=== PATIENT | male | born 1940 | race Two or more races ===

== ENCOUNTER 2016-08-22 13:13 | Emergency (ER) | payer SELFPAY ==
[~2016-08-22] VITALS: Ht 167.6 cm; Wt 68.0 kg
[2016-08-22] MEDS ORDERED: NKM (13:22)
--- NOTE | 2016-08-22 13:43 | Emergency Room Report ---
History of Present Illness General Chief Complaint: Pain Source: Patient (YUSUF SZYMANSKI) Present Illness HPI The patient is a 76-year-old male with a history of left-sided paralysis presenting for left ankle pain which began today after walking. The patient states that he has been walking more than usual. The patient does not use a cane or any assistive device. The patient states pain is an 8/10 dull ache to the ankle and does not radiate. The patient denies any other symptoms including numbness or tingling. (YUSUF SZYMANSKI) Allergies: Coded Allergies: No Known Allergies (Unverified , 08/22/16) Patient History Reviewed Nursing Documentation: PMH: Agreed, PSxH: Agreed (YUSUF SZYMANSKI) Nursing Documentation-PM Past Medical History: No History, Except For Hx Neurological Problems: Yes - Head injury; Paralyzed LUE (YUSUF SZYMANSKI) Review of Systems All Other Systems: negative except mentioned in HPI (YUSUF SZYMANSKI) Physical Exam Vital Signs Date Time Temp Pulse Resp B/P Pulse Ox O2 Delivery O2 Flow Rate FiO2 08/22/16 13:24 97.2 92 16 174/77 98 Room Air Sp02 EP Interpretation: reviewed, normal General Appearance: no apparent distress, alert, GCS 15, non-toxic Head: normocephalic, atraumatic Eyes: bilateral eye PERRL, bilateral eye normal inspection ENT: hearing grossly normal, normal pharynx, no angioedema, normal voice Musculoskeletal: back normal, non-tender, no calf tenderness, decreased range of motion - L side due to paralysis Neurologic: alert, oriented x3, responsive, sensory intact, speech normal, motor weakness - L sided, other - No AROM of L side due to paralysis Psychiatric: judgement/insight normal, memory normal, mood/affect normal, no suicidal/homicidal ideation (YUSUF SZYMANSKI) Medical Decision Making PA Attestation Dr. Casanova is my supervising physician. Patient management was discussed with my supervising physician (YUSUF SZYMANSKI) Diagnostic Impression: Primary Impression: Left ankle strain ER Course The patient is a 76-year-old male with a history of left-sided paralysis presenting for left ankle pain Ddx considered include but not limited to sprain/strain, fracture, contusion PE: NAD L ankle: no edema. Non TTP. No AROM due to paralysis. No erythema. No obvious deformity. X-ray of the ankle is unremarkable for acute process. Patient is given Tylenol for pain. The patient will be discharged home and is given RICE instructions. (YUSUF SZYMANSKI) ER Course I agree with PA HPI and PE, as well as their assessment/plan. I also concur with PA review of imaging and rhythm strip without additional interpretation. (YEMI CASANOVA M.D.) Other X-Ray Diagnostic Results Other X-Ray Diagnostic Results : X-Ray Ordered: L ankle Date: Aug 22, 2016 EP Interpretation: Yes Findings: no fractures, no dislocation, no soft tissue swelling Number of Views: 3 PA Scribe Text I am acting as scribe for my supervising physician. My supervising physician's interpretation of the L ankle xrays are there are no fractures, dislocations or soft tissue swelling. (YUSUF SZYMANSKI) Last Vital Signs Date Time Temp Pulse Resp B/P Pulse Ox O2 Delivery O2 Flow Rate FiO2 08/22/16 13:24 97.2 92 16 174/77 98 Room Air Status: improved (YUSUF SZYMANSKI) Disposition: HOME, SELF-CARE Condition: Improved Scripts Acetaminophen* (TYLENOL EXTRA STRENGTH*) 500 Mg Tablet 500 MG ORAL Q8H Y for Prn Headache/Temp > 101, #30 TAB 0 Refills Prov: YUSUF SZYMANSKI 08/22/16 YUSUF SZYMANSKI Aug 22, 2016 13:43 YEMI CASANOVA M.D. Aug 25, 2016 19:35
[2016-08-22] MEDS ORDERED: TYLENOL EXTRA500 MG ORAL (14:44)
[2016-08-22 15:59] VITALS: BP 157/83
--- NOTE | 2016-08-22 16:39 | Diagnostic Imaging Report ---
Indication: PAIN Technique: 3 views of the left ankle Comparison: none Findings: No acute fractures. No dislocations. There is a sizable area of heterotopic ossification posterior to the distal tibia. This is either within the Achilles tendon or the adjacent subcutaneous fat Impression: No acute bony trauma Area of heterotopic ossification within the posterior subcutaneous fat or Achilles tendon. Correlate with any history of prior trauma
== END 2016-08-22 16:02 | disposition home or self-care (01) ==
LOC: EMR 13:40
DX: S96.912A Strain of unspecified muscle and tendon at ankle and foot level, left foot, initial encounter (principal); Y93.01 Activity, walking, marching and hiking; Y92.9 Unspecified place or not applicable; G81.94 Hemiplegia, unspecified affecting left nondominant side
CPT/HCPCS: 99283

== ENCOUNTER 2017-01-07 07:44 | Inpatient (IN) | payer MEDICARE ==
[~2017-01-07] VITALS: Ht 167.6 cm; Wt 64.9 kg
[~2017-01-07 07:44] MED LIST: NKM; TYLENOL EXTRA500 MG ORAL
[2017-01-07 08:05] VITALS: BP 187/64
--- NOTE | 2017-01-07 08:42 | Emergency Room Report ---
History of Present Illness General Chief Complaint: Multiple Trauma/Fall Source: Patient, EMS Present Illness HPI [id number] BIBEMS for standing level accidental fall on right side of head. No loc, nausea/vomiting. Not on ASA or other AC. Last tetanus was last year. Has left side weakness residual from distant fall, ?CVA "years ago." States "brain surgery in 1961". C/o dizziness. Ambulates without cane, "on one leg." Allergies: Coded Allergies: No Known Allergies (Unverified , 08/22/16) Patient History Past Medical History: see triage record, old chart reviewed Past Surgical History: none Pertinent Family History: none Social History: Denies: alcohol use, drug use, smoking Immunizations: UTD Reviewed Nursing Documentation: PMH: Agreed, PSxH: Agreed Nursing Documentation-PMH Past Medical History: No Stated History Hx Neurological Problems: Yes - Head injury; Paralyzed LUE Review of Systems All Other Systems: negative except mentioned in HPI Physical Exam Vital Signs Date Time Temp Pulse Resp B/P Pulse Ox O2 Delivery O2 Flow Rate FiO2 01/07/17 07:37 97.7 80 18 145/65 96 Room Air Sp02 EP Interpretation: reviewed, normal General Appearance: normal inspection, well appearing, no apparent distress, alert, GCS 15, non-toxic Head: normocephalic Eyes: bilateral eye EOMI, bilateral eye PERRL ENT: normal ENT inspection, hearing grossly normal, normal voice Neck: normal inspection, full range of motion, supple, no bony tend Respiratory: normal inspection, lungs clear, normal breath sounds, no respiratory distress, no retraction, no wheezing Cardiovascular #1: regular rate, rhythm, no edema Gastrointestinal: normal inspection, normal bowel sounds, non tender, soft, no guarding, no hernia Genitourinary: no CVA tenderness Musculoskeletal: normal inspection, back normal, normal range of motion, Angel' s Sign negative Neurologic: normal inspection, alert, oriented x3, responsive, chief relay tester III-XII nml as tested, speech normal, other - Left hand atrophied, contracted. Decreased strength to left side, upper and lower. No ataxia but very unsteady on feet Psychiatric: normal inspection, judgement/insight normal, mood/affect normal Skin: normal inspection, normal color, no rash Lymphatic: normal inspection Medical Decision Making Medicare Attestation I Kirill Casanova MD hereby attest that the medical record entry for date of service, 06/20/16 accurately reflects signatures/notations that I made in my capacity as MD when I treated/diagnosed the above listed Medicare beneficiary. I attest that this information is true, accurate and complete to the best of my knowledge. I understand that any falsification, omission, or concealment of material fact may subject me to administrative, civil, or criminal liability. This patient warrants hospital admission for extreme of age and has a condition that cannot be treated as outpatient. Diagnostic Impression: Primary Impression: Head contusion Qualified Codes: S00.93XA - Contusion of unspecified part of head, initial encounter Additional Impressions: Fall (on) (from) other stairs and steps, initial encounter Dizziness ER Course Fall, head trauma - No acute ICH on CT - Tetanus updated previous Dizziness - C/o dizziness since fall - Labs: No acute abnormality. H&H stable. No leuks. Trop 0. - ECG: ECG is NSR. No ischemia - CT shows s/p craniotomy, chronic encephalomalacia, ?NPH Tried to ambulate patient bedside, extremely busy ?acute NPH Warrants Neurology consult inpatient Endorsed to Dr Navarro for Panel Admit at 11am for tele bed. EKG Diagnostic Results Rate: normal Rhythm: NSR ST Segments: no acute changes ASA given to the pt in ED: No Rhythm Strip Diag. Results EP Interpretation: yes Rate: 73 Rhythm: NSR, no PVC's, no ectopy Chest X-Ray Diagnostic Results Chest X-Ray Ordered: Yes # of Views/Limited/Complete: 1 View EP Interpretation: Yes Interpretation: no consolidation, no effusion, no pneumothorax, no acute cardiopulmonary disease Indication: Other - dizziness Impression: No acute disease Interpreting ER Provider: Alejandro Last Vital Signs Date Time Temp Pulse Resp B/P Pulse Ox O2 Delivery O2 Flow Rate FiO2 01/07/17 07:37 97.7 80 18 145/65 96 Room Air Status: improved Disposition: ADMITTED INPATIENT Condition: Serious Referrals: NOT CHOSEN VERA/,REFERRING (PCP) KIRILL CASANOVA M.D. Jan 07, 2017 08:42
[2017-01-07 10:00] VITALS: BP 179/70
[2017-01-07 10:20] LABS: APPEARANCE,URINE CLEAR; KETONES,URINE NEGATIVE (NEGATIVE); LEUKOCYTE ESTERASE ,URINE NEGATIVE (NEGATIVE); NITRITE,URINE NEGATIVE (NEGATIVE); PH,URINE 7 (4.5-8.0); PROTEIN,URINE NEGATIVE (NEGATIVE); UROBILINOGEN,URINE NORMAL MG/DL (0.0-1.0)
[2017-01-07 10:23] LABS: BASOPHILS % (AUTO) 1.6 % (0.0-2.0); LYMPHOCYTES % (AUTO) 18.7 % (20.0-45.0); MEAN CORPUSCULAR HEMOGLOBIN 28.2 PG (27.0-31.0); MEAN CORPUSCULAR HGB CONC 32.6 G/DL (32.0-36.0); MEAN CORPUSCULAR VOLUME 86 FL (80-99); MEAN PLATELET VOLUME 5.8 FL (6.5-10.1); MONOCYTES % (AUTO) 11.4 % (1.0-10.0); NEUTROPHILS % (AUTO) 65.4 % (45.0-75.0); PLATELET COUNT 257 K/UL (150-450); RED BLOOD COUNT 4.95 M/UL (4.70-6.10); RED CELL DISTRIBUTION WIDTH 11.1 % (11.6-14.8); WHITE BLOOD COUNT 6.5 K/UL (4.8-10.8)
[2017-01-07 10:35] LABS: ALANINE AMINOTRANSFERASE 10 U/L (3-41); ANION GAP 11 (5-15); ASPARTATE AMINO TRANSFERASE 14 U/L (5-40); CALCIUM 9.3 mg/dL (8.6-10.2); CARBON DIOXIDE 30 mEQ/L (20-30); CHLORIDE 100 mEQ/L (98-107); CREATININE 0.8 mg/dL (0.7-1.2); HEMOLYSIS 5; POTASSIUM 4.3 mEQ/L (3.4-4.9); SODIUM 141 mEQ/L (135-145); TOTAL PROTEIN 6.3 g/dL (6.6-8.7); TROPONIN I < 0.30 ng/mL (<=0.30)
[2017-01-07 10:47] LABS: CKMB 2.9 ng/mL (< 6.7)
[2017-01-07 10:58] LABS: BACTERIA,URINE OCCASIONAL /HPF; SQUAMOUS EPITHELIAL CELL,UR OCCASIONAL /LPF (NONE/OCC); WBC,URINE 0-2 /HPF (0 - 0)
[2017-01-07 11:04] VITALS: BP 179/70
[2017-01-07 12:00] VITALS: BP 160/93
--- NOTE | 2017-01-07 12:09 | Diagnostic Imaging Report ---
Indications: Fall, right temporal region head trauma, pain Technique: Continuous helical CT imaging of the brain was performed with automatic exposure control on a Siemens sensation [address] scanner. Axial and coronal images were reconstructed at 5 mm slice thickness and interval. CTDI volume(s): 70 mGy Total DLP: 1463 mGy-cm Findings: Comparison: None. Large area of fluid-filled parenchymal loss involves much of the right and adjacent portion of the right below as well as underlying insula and basal ganglia regions. Blunting surgical clips, craniotomy defects. Ventricles, cisterns and sulci are diffusely prominent. No evidence of mass or hemorrhage, other attenuation abnormality, mass effect, midline shift, or increased intracranial pressure. Bone window images are otherwise unremarkable. Mild mucoperiosteal thickening bilateral ethmoid sinuses. Remainder visualized paranasal sinuses and mastoid air cells are clear. IMPRESSION: No evidence of acute injury or other acute intra-pathology Large area of chronic encephalomalacia right frontal and temporal lobes, insula, basal ganglia underlying old craniotomy defect Atrophy with ventriculomegaly. Query element of normal pressure hydrocephalus.. Sinus disease The CT scanner at [facility] is accredited by the [place] and the scans are performed using protocols designed to limit radiation exposure to as low as reasonably achievable to attain images of sufficient resolution adequate for diagnostic evaluation.
--- NOTE | 2017-01-07 12:27 | Diagnostic Imaging Report ---
Indication: Shortness breath Technique: Single portable AP view of the chest. Findings: Comparison: None. Patient rotated LPO, limiting evaluation. Thoracic vertebral osteophytes. Aortic arch calcified. The remaining bones and extra pulmonary soft tissues, remainder of the cardiomediastinal silhouette, pulmonary vasculature and parenchyma, and pleural surfaces are unremarkable. IMPRESSION: No evidence of acute cardiopulmonary disease, limited as described. Chronic changes as described..
[2017-01-07 16:00] VITALS: BP 132/58
[2017-01-07 20:00] VITALS: BP 126/59
[2017-01-07] MEDS: Heparin 5000 units/ml inj SUBQ SCH (20:34)
[2017-01-07] MEDS ORDERED: Zolpidem 5mg tab ORAL PRN (21:00)
[2017-01-08 08:00] VITALS: BP 154/74
[2017-01-08] MEDS: Heparin 5000 units/ml inj SUBQ SCH ×2 (08:47→21:21)
[2017-01-08 12:00] VITALS: BP 147/79
--- NOTE | 2017-01-08 15:12 | History & Physical ---
History and Physical History & Physicial HPI 76 brought in after a fall. Patient admits to prior brain surgery back in 1962. Patient notes he is homeless and will need rehab. Patient underwent CT head with some concern of NPH. Patient does complain of dizziness. no vision change Ambulates without cane but has difficulty doing so. Events of the fall were acute but he has had difficulty with balance for some time. Patient denies any head trauma at this time. Allergies: No Known Allergies (Unverified , 08/22/16) Past Medical History: LUE paralysis, head injury Past Surgical History: prior brain surgery Pertinent Family History: none Social History: no alcohol use, drug use, smoking; reports being homeless Reviewed of systems: all 10 points reviewed and are reported as negative Physical exam WDWN NAD clear breath sounds bilaterally without rhonchi or wheeze [id number] without MRG NABS nontender no HSM no CCE alert and oriented but history is poor left hand/arm with atrophy and contractures Labs Test 01/07/17 10:00 White Blood Count 6.5 K/UL (4.8-10.8) Red Blood Count 4.95 M/UL (4.70-6.10) Hemoglobin 14.0 G/DL (14.2-18.0) Hematocrit 42.8 % (42.0-52.0) Mean Corpuscular Volume 86 FL (80-99) Mean Corpuscular Hemoglobin 28.2 PG (27.0-31.0) Mean Corpuscular Hemoglobin Concent 32.6 G/DL (32.0-36.0) Red Cell Distribution Width 11.1 % (11.6-14.8) Platelet Count 257 K/UL (150-450) Mean Platelet Volume 5.8 FL (6.5-10.1) Neutrophils (%) (Auto) 65.4 % (45.0-75.0) Lymphocytes (%) (Auto) 18.7 % (20.0-45.0) Monocytes (%) (Auto) 11.4 % (1.0-10.0) Eosinophils (%) (Auto) 3.0 % (0.0-3.0) Basophils (%) (Auto) 1.6 % (0.0-2.0) Urine Color Pale yellow Urine Appearance Clear Urine pH 7 (4.5-8.0) Urine Specific [place] 1.010 (1.005-1.035) Urine Protein Negative (NEGATIVE) Urine Glucose (UA) Negative (NEGATIVE) Urine Ketones Negative (NEGATIVE) Urine Occult Blood 2+ (NEGATIVE) Urine Nitrite Negative (NEGATIVE) Urine Bilirubin Negative (NEGATIVE) Urine Urobilinogen Normal MG/DL (0.0-1.0) Urine Leukocyte Esterase Negative (NEGATIVE) Urine RBC 2-4 /HPF (0 - 0) Urine WBC 0-2 /HPF (0 - 0) Urine Squamous Epithelial Cells Occasional /LPF Urine Bacteria Occasional /HPF (NONE) Sodium Level 141 mEQ/L (135-145) Potassium Level 4.3 mEQ/L (3.4-4.9) Chloride Level 100 mEQ/L (98-107) Carbon Dioxide Level 30 mEQ/L (20-30) Anion Gap 11 (5-15) Blood Urea Nitrogen 14 mg/dL (7-23) Creatinine 0.8 mg/dL (0.7-1.2) Estimat Glomerular Filtration Rate mL/min (>60) Glucose Level 103 mg/dL (74-106) Calcium Level 9.3 mg/dL (8.6-10.2) Total Bilirubin 0.3 mg/dL (0.0-1.2) Aspartate Amino Transf (AST/SGOT) 14 U/L (5-40) Alanine Aminotransferase (ALT/SGPT) 10 U/L (3-41) Alkaline Phosphatase 71 U/L (40-129) Total Creatine Kinase 71 U/L (38-174) Creatine Kinase MB 2.9 ng/mL (< 6.7) Creatine Kinase MB Relative Index 4.0 Troponin I < 0.30 ng/mL (<=0.30) Total Protein 6.3 g/dL (6.6-8.7) Albumin 4.2 g/dL (3.5-5.2) Globulin 2.1 g/dL Albumin/Globulin Ratio 2.0 (1.0-2.7) IMPRESSION possible NPH left upper extremity atrophy acute encephalopathy prior brain surgery per report PLAN hydrate follow up MRI neuro evaluation PT and OT evaluation likely will need placement at risk of falls impression, plan, and exam edited and reviewed in detail care discussed with VINCENT MAY Jan 08, 2017 15:12
[2017-01-08 15:47] VITALS: BP 138/71
[2017-01-08 20:00] VITALS: BP 159/73
[2017-01-09] VITALS: BP 142/69
[2017-01-09 04:00] VITALS: BP 149/60
[2017-01-09 08:00] VITALS: BP 138/68
[2017-01-09] MEDS: Heparin 5000 units/ml inj SUBQ SCH ×2 (08:01→21:49)
--- NOTE | 2017-01-09 08:39 | General Progress Note ---
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 acute encephalopathy prior brain surgery per report PLAN hydrate as is follow up MRI neuro evaluation PT and OT evaluation likely will need placement for rehab at risk of falls impression, plan, and exam edited and reviewed in detail care discussed with RN Subjective Allergies: Coded Allergies: No Known Allergies (Unverified , 08/22/16) Subjective still confused NAD overall comfortable Objective Last 24 Hour Vital Signs Date Time Temp Pulse Resp B/P Pulse Ox O2 Delivery O2 Flow Rate FiO2 01/09/17 04:00 69 01/09/17 04:00 97.9 66 19 149/60 99 Room Air 01/09/17 00:00 98.0 73 20 142/69 95 Room Air 01/09/17 00:00 72 01/08/17 20:00 98.4 73 20 159/73 97 Room Air 01/08/17 20:00 74 01/08/17 16:00 73 01/08/17 15:47 98.1 74 18 138/71 98 Room Air 01/08/17 12:00 97.9 75 19 147/79 97 Room Air 01/08/17 12:00 72 Intake and Output 01/08/17 01/09/17 19:00 07:00 Intake Total 1815 ml 1340 ml Output Total 1550 ml 900 ml Balance 265 ml 440 ml Intake Oral 800 ml 200 ml IV Total 1015 ml 1140 ml Output Urine Total 1550 ml 900 ml # Bowel Movements 2 Labs Test 01/07/17 10:00 White Blood Count 6.5 K/UL (4.8-10.8) Red Blood Count 4.95 M/UL (4.70-6.10) Hemoglobin 14.0 G/DL (14.2-18.0) Hematocrit 42.8 % (42.0-52.0) Mean Corpuscular Volume 86 FL (80-99) Mean Corpuscular Hemoglobin 28.2 PG (27.0-31.0) Mean Corpuscular Hemoglobin Concent 32.6 G/DL (32.0-36.0) Red Cell Distribution Width 11.1 % (11.6-14.8) Platelet Count 257 K/UL (150-450) Mean Platelet Volume 5.8 FL (6.5-10.1) Neutrophils (%) (Auto) 65.4 % (45.0-75.0) Lymphocytes (%) (Auto) 18.7 % (20.0-45.0) Monocytes (%) (Auto) 11.4 % (1.0-10.0) Eosinophils (%) (Auto) 3.0 % (0.0-3.0) Basophils (%) (Auto) 1.6 % (0.0-2.0) Urine Color Pale yellow Urine Appearance Clear Urine pH 7 (4.5-8.0) Urine Specific [place] 1.010 (1.005-1.035) Urine Protein Negative (NEGATIVE) Urine Glucose (UA) Negative (NEGATIVE) Urine Ketones Negative (NEGATIVE) Urine Occult Blood 2+ (NEGATIVE) Urine Nitrite Negative (NEGATIVE) Urine Bilirubin Negative (NEGATIVE) Urine Urobilinogen Normal MG/DL (0.0-1.0) Urine Leukocyte Esterase Negative (NEGATIVE) Urine RBC 2-4 /HPF (0 - 0) Urine WBC 0-2 /HPF (0 - 0) Urine Squamous Epithelial Cells Occasional /LPF Urine Bacteria Occasional /HPF (NONE) Sodium Level 141 mEQ/L (135-145) Potassium Level 4.3 mEQ/L (3.4-4.9) Chloride Level 100 mEQ/L (98-107) Carbon Dioxide Level 30 mEQ/L (20-30) Anion Gap 11 (5-15) Blood Urea Nitrogen 14 mg/dL (7-23) Creatinine 0.8 mg/dL (0.7-1.2) Estimat Glomerular Filtration Rate mL/min (>60) Glucose Level 103 mg/dL (74-106) Calcium Level 9.3 mg/dL (8.6-10.2) Total Bilirubin 0.3 mg/dL (0.0-1.2) Aspartate Amino Transf (AST/SGOT) 14 U/L (5-40) Alanine Aminotransferase (ALT/SGPT) 10 U/L (3-41) Alkaline Phosphatase 71 U/L (40-129) Total Creatine Kinase 71 U/L (38-174) Creatine Kinase MB 2.9 ng/mL (< 6.7) Creatine Kinase MB Relative Index 4.0 Troponin I < 0.30 ng/mL (<=0.30) Total Protein 6.3 g/dL (6.6-8.7) Albumin 4.2 g/dL (3.5-5.2) Globulin 2.1 g/dL Albumin/Globulin Ratio 2.0 (1.0-2.7) Height (Feet): 5 Height (Inches): 6.00 Weight (Pounds): 143 Objective WDWN NAD clear breath sounds bilaterally without rhonchi or wheeze [id number] without MRG NABS nontender no HSM no CCE alert and oriented but history is poor left hand/arm with atrophy and contractures reviewed and edited VINCENT PANTOJA Jan 09, 2017 08:39
--- NOTE | 2017-01-09 11:17 | Neurology Progress Note ---
Objective Physical Exam Last Vital Signs Date Time Temp Pulse Resp B/P Pulse Ox O2 Delivery O2 Flow Rate FiO2 01/09/17 04:00 69 01/09/17 04:00 97.9 19 149/60 99 Room Air Impression/Recommendations Recommendations #[id number] EEG PT/OT placement NOE TRIVEDI Jan 09, 2017 11:17
[2017-01-09 12:00] VITALS: BP 142/65
[2017-01-09 13:52] LABS: PSA TOTAL 2.5 ng/mL (< 4.5); THYROID STIMULATING HORMONE 1.36 uIU/mL (0.300-4.500)
[2017-01-09 14:02] LABS: CHOLESTEROL/HDL RATIO 2.7 (3.3-4.4)
[2017-01-09 16:00] VITALS: BP 148/69
--- NOTE | 2017-01-09 19:45 | Consultation ---
DATE OF CONSULTATION: 01/09/2017 NEUROLOGICAL CONSULTATION REQUESTING PHYSICIAN: Charlie Navarro M.D. HISTORY OF PRESENT ILLNESS: This is a 76-year-old homeless man, who is seen in neurological consultation to evaluate the new changes in mental status, memory loss and status post trip and fall accident. The patient informed me that he was walking when the left leg, which is shorter, tripped, he fell forward hitting right side of the head exactly the place where he had a previous head surgery. He had no loss of consciousness. He was able to get up and go to a nearby restaurant where he asked them to call paramedics. He was brought to emergency room with vital signs stable, blood pressure was 145/65, heart rate of 80, and temperature 97.7 degrees. He had a right parietal bruise. He was complaining of dizziness, weakness and retrograde amnesia on the event. Following admission, stat CT of the brain was obtained. No evidence of acute intracranial abnormality and no evidence of subdural hematoma. There is a large area of chronic encephalomalacia right frontal temporal lobe as well as inferior basal ganglia, which were underlying for craniotomy defect. There was atrophy with ventriculomegaly, some elements of normal pressure hydrocephalus, and sinus disease. Lab work study revealed normal CBC. Chemistry panel was unremarkable. Normal troponin. He remains stable. PAST MEDICAL HISTORY: The patient has a history of traumatic subdural hematoma in 1962, required a craniotomy and cranioplasty. He remained with left hemiparesis since then. He had cough. The patient is unaware of any other medical problems. He denies having seizures. History of head trauma with surgery. Denies high blood pressure, diabetes and no chest pain or palpitations. SOCIAL HISTORY: The patient last month, he is on a street. He was not elaborating much about his past, but indicated those members of the family who was available they are busy with their live, growing children. Denies alcohol or drug abuse. PHYSICAL EXAMINATION: GENERAL: Well-developed and well-nourished man, not in acute distress and sitting at the bedside. HEENT: Head, normocephalic. There is a bruise in the area of previous craniotomy. There was slight tenderness in this area. No otorrhea. No rhinorrhea. NECK: Supple. No meningeal signs. MUSCULOSKELETAL: Remarkable for left-sided smallness. Peripheral pulses 1+, symmetric. MENTAL STATUS: Alert and oriented x3. Speech is fluent. Language is intact. He is somewhat forgetful and stated that he cannot recall the details of his fall. Currently, still with mild lightheadedness and forgetfulness. CRANIAL NERVE II: Pupils, both responding to light and accommodation. Extraocular movements intact. No nystagmus. Visual gentile are full to confrontation. Fundi poorly visualized. CRANIAL NERVE V: Normal corneal responses. CRANIAL NERVE VII: Minor facial asymmetry. CRANIAL NERVE VIII: Normal hearing. CRANIAL NERVE IX THROUGH XII: Tongue is in midline. Symmetric palate elevation. MOTOR EXAMINATION: Spastic left upper and left lower extremity with weakness 1/5 left upper extremity and 3/5 left lower extremity. Muscle wasting and smallness of left upper and left lower extremity. Deep tendon reflexes 4+ on the left and 1+ on the right. Positive Babinski in the left. SENSORY EXAM: Decreased response to pin stimulation to left hand and leg. Gait hemiparetic, using cane. IMPRESSION: 1. Status post trip and fall accident with a blunt head trauma, scalp laceration. 2. Old right-sided subdural hematoma with craniotomy, results in a good residual, spastic left hemiparesis. 3. Hydrocephalus with ex-vacuo. 4. Homelessness. RECOMMENDATION: Get a PT/OT. Mobility protocol. Observe for any paroxysmal events. Get an EEG to evaluate for underlying seizure activities. health services rn for appropriate placement. Lab work to include B12, folate, thyroid function, CORINE, sedimentation rate, lipid panel, and PSA. Thank you for allowing me to see this interesting patient in neurological consultation. Alber Aquino M.D. DR: YOAV JOB#: [id number] CC:
--- NOTE | 2017-01-09 20:09 | Cardiology Report ---
APPROVED REPORT EKG Measurement Heart [id number] AR [id number] Normal sinus rhythm Left axis deviation Abnormal ECG
[2017-01-09 20:26] VITALS: BP 155/80
[2017-01-10] VITALS: BP 129/54
[2017-01-10 04:00] VITALS: BP 131/68
--- NOTE | 2017-01-10 08:05 | General Progress Note ---
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 acute encephalopathy prior brain surgery per report PLAN hydrate as is follow up MRI and EEG neuro evaluation appreciated PT and OT evaluation SNF placement at risk of falls impression, plan, and exam edited and reviewed in detail care discussed with RN Subjective Allergies: Coded Allergies: No Known Allergies (Unverified , 08/22/16) Subjective still with some confusion NAD overall comfortable neuro appreciated Objective Last 24 Hour Vital Signs Date Time Temp Pulse Resp B/P Pulse Ox O2 Delivery O2 Flow Rate FiO2 01/10/17 04:00 98.5 71 18 131/68 65 Room Air 01/10/17 04:00 68 01/10/17 00:00 69 01/10/17 00:00 98.6 67 20 129/54 96 Room Air 01/09/17 20:26 70 21 155/80 93 Room Air 01/09/17 20:00 68 01/09/17 16:00 76 01/09/17 16:00 98.2 78 19 148/69 98 Room Air 01/09/17 12:00 67 01/09/17 12:00 98.5 78 18 142/65 98 Room Air Intake and Output 01/09/17 01/10/17 19:00 07:00 Intake Total 1100 ml 1048.0 ml Output Total 900 ml 1200 ml Balance 200 ml -152.0 ml Intake Oral 200 ml IV Total 900 ml 1048.0 ml Output Urine Total 900 ml 1200 ml Laboratory Tests 01/09/17 12:15: Triglycerides Level 70, Cholesterol Level 106, LDL Cholesterol 53L, HDL Cholesterol 39, Cholesterol/HDL Ratio 2.7L, Prostate Specific Antigen 2.5, Vitamin B12 Level 181L, Thyroid Stimulating Hormone (TSH) 1.360 Height (Feet): 5 Height (Inches): 6.00 Weight (Pounds): 143 Objective WDWN NAD clear breath sounds bilaterally without rhonchi or wheeze [id number] without MRG NABS nontender no HSM no CCE alert and oriented but history is poor left hand/arm with atrophy and contractures reviewed and edited VINCENT PANTOJA Jan 10, 2017 08:05
[2017-01-10 08:30] VITALS: BP 127/66
[2017-01-10] MEDS: Heparin 5000 units/ml inj SUBQ SCH ×2 (10:15→21:05)
[2017-01-10 12:02] VITALS: BP 131/58
--- NOTE | 2017-01-10 12:28 | Neurology Progress Note ---
Interim History Interim History ROS Limited/Unobtainable: No Complaints: worry about brain bleed Events: stable Objective Physical Exam Last Vital Signs Date Time Temp Pulse Resp B/P Pulse Ox O2 Delivery O2 Flow Rate FiO2 01/10/17 12:02 98.0 63 18 131/58 95 Room Air General: other - R FT craniotomy Head: normocophalic, atraumatic Neck: no rigidity Neurologic Exam Mental Status: awake, alert, oriented x4, normal cognition, normal recent memory Speech: normal speech, no dysarthia Language: normal language, no aphasia Cranial Nerve II: fundus normal, visual gentile, no papilledema Cranial Nerves III, IV, : PERRLA, EOMI, pupils Cranial Nerve V: normal facial sensations, temporales function normal, masseters function normal, pterygoids function normal Cranial Nerve VII: other - L face droop Cranial Nerve VIII: no nystagmus Cranial Nerve IX: normal palate elevation, gag response Cranial Nerve X: no voice hoarseness Cranial Nerve XI: SCM symmetric, trapezii function normal Cranial Nerve XII: tongue midline, no tongue atrophy/fasciculations Motor System: other - spastic L side Sensory: normal pinprick, normal position sense Coordination: other - +romberg Deep Tendon Reflexes: 1+ bicep (R), 1+ brachioradialis (R), 1+ knee (R), 1+ tricep (R), 3+ ankle (L), 3+ bicep (L), 3+ brachioradialis (L), 3+ knee (L), 3+ tricep (L) Reflexes: mute plantar (L), mute plantar (R) Gait: other - hemiparetic Impression/Recommendations Problems: (1) s/p blunt head trauma (2) old R craniotomy/cranioplasy (3) 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
--- NOTE | 2017-01-10 12:31 | Electroencephalogram ---
DATE OF PROCEDURE: 01/09/2017 ELECTROENCEPHALOGRAPHY REPORT REFERRING PHYSICIAN: Charlie Navarro M.D. HISTORY: This is a 76-year-old man, who has a large encephalomalacia affecting right frontal lobe and basal ganglia, status post a craniotomy and status post cardiotomy for subdural hematoma. The patient admitted with changes in mental status. EEG was done using 18 electrodes placed scalp to scalp, scalp to ear montages according to 10/20 International System. During the recording, the patient was awake or drowsy, but fairly cooperative normal mentality. Most wakeful portions of recording, background activity consists of well regulated, 7 to 8 cycles per second alpha activities, with good response to physiological stimulation. Photic stimulation from 3 to 32 hertz was done, result no significant changes with intermittent appearance of slowness in the theta range, 6 to 7 hertz was noted in the right frontal central region. No significant amplitude asymmetry noted as well. IMPRESSION: Abnormal EEG with mild diffuse slowing, with localized in the right frontal central region. COMMENT: 1. Above abnormality indicates a global cerebral dysfunction with probably structural lesion in the right frontal central area. 2. Absence of paroxysmal epileptiform activities does not rule out seizure disorder. Alber Aquino M.D. DR: BI JOB#: [id number] CC:
[2017-01-10 15:54] VITALS: BP 135/66
--- NOTE | 2017-01-10 16:06 | Geriatric Progress Note ---
Assessment/Plan Assessment/Plan lexapro 10mg qam no 5150 no psych hospt dc sitter Discussed with: patient Subjective Constitutional: Reports: malaise, weakness Psychiatric: Reports: see HPI Sleep: Reports: no symptoms Geriatric Geriatric Last 24 Hour Vital Signs Date Time Temp Pulse Resp B/P Pulse Ox O2 Delivery O2 Flow Rate FiO2 01/10/17 15:54 98.1 65 20 135/66 97 Room Air 01/10/17 12:02 98.0 63 18 131/58 95 Room Air 01/10/17 12:00 72 01/10/17 08:30 98.2 75 18 127/66 95 Room Air 01/10/17 08:00 71 01/10/17 04:00 98.5 71 18 131/68 65 Room Air 01/10/17 04:00 68 01/10/17 00:00 69 01/10/17 00:00 98.6 67 20 129/54 96 Room Air 01/09/17 20:26 70 21 155/80 93 Room Air 01/09/17 20:00 68 Intake and Output 01/09/17 01/10/17 19:00 07:00 Intake Total 1100 ml 1048.0 ml Output Total 900 ml 1200 ml Balance 200 ml -152.0 ml Intake Oral 200 ml IV Total 900 ml 1048.0 ml Output Urine Total 900 ml 1200 ml Current Medications Medications (Trade) Dose Ordered Sig/Natalio Route PRN Reason Start Time Stop Time Status Last Admin Dose Admin Acetaminophen (Tylenol) 650 mg Q4H PRN ORAL Mild Pain/Temp > 100.5 01/07/17 13:00 02/06/17 12:59 Al Hydroxide/Mg Hydroxide (Mylanta) 30 ml EVERY 4 HOURS PRN ORAL DYSPEPSIA 01/07/17 13:00 02/06/17 12:59 Clonidine HCl (Catapres) 0.1 mg Q4H PRN ORAL SBP>150 01/07/17 13:00 02/06/17 12:59 01/07/17 14:50 Escitalopram Oxalate (Lexapro) 10 mg DAILY ORAL 01/11/17 09:00 02/10/17 08:59 UNV Heparin Sodium (Porcine) (Heparin 5000 units/ml) 5,000 units EVERY 12 HOURS SUBQ 01/07/17 21:00 02/06/17 20:59 01/10/17 10:15 Pantoprazole (Protonix) 40 mg DAILY ORAL 01/08/17 09:00 02/07/17 08:59 01/10/17 10:13 Sodium Chloride (Sodium Chloride 1000ml bag) 1,000 ml @ 100 mls/hr Q10H IV 01/07/17 13:00 02/06/17 12:59 01/10/17 15:00 Zolpidem Tartrate (Ambien) 5 mg HSPRN PRN ORAL Insomnia 01/07/17 21:00 02/06/17 20:59 Height (Feet): 5 Height (Inches): 6.00 Weight (Pounds): 143 General Appearance: well appearing, alert Psychiatric: no suicidal/homicidal ideation, depressed affect, anxious Psychiatric Behavior: cooperative Language/Speech: intact, fluent Orientation: person, place, time, situation Affect: appropriate, restricted Insight: good Memory: immediate, recent, remote Kathie Wallace M.D. Jan 10, 2017 16:06
[2017-01-10 20:00] VITALS: BP 145/70
--- NOTE | 2017-01-10 21:46 | Consultation ---
DATE OF CONSULTATION: HISTORY OF PRESENT ILLNESS: The patient is a 76-year-old male with a history of multiple medical problems, depression, left ankle strain, head contusion, fall, and dizziness, who has been admitted to the hospital for medical stabilization. The patient voiced suicidal ideation two days ago to the staff. The patient has been placed on one-to-one for safety. During the evaluation, the patient is presenting with depressed mood, anhedonia, decreased energy, hopelessness, and helplessness. The patient does not endorse any decreased appetite, decreased sleep as well. He currently does not endorse any suicidal ideation, however, he stated at some point that he is suicidal. He has an appointment with a physician in [place] that he has missed and he does not have any regular psychiatrist. PAST MEDICAL HISTORY: As I mentioned above, he has a history of fall and head contusion. ALLERGIES: No known drug allergies. SUBSTANCE ABUSE HISTORY: No known history of illicit drug use or alcohol. The patient has no children. MENTAL STATUS EXAMINATION: The patient is alert and oriented x3. Mood is depressed. Affect is constricted. Congruent mood. Thought process is concrete. Thought content, there is no suicidal or homicidal ideation. ASSESSMENT: AXIS I Major depressive disorder, recurrent, moderate. AXIS II Deferred. AXIS III Fall. AXIS IV Low. AXIS V Global assessment of functioning is 20. PLAN: 1. Lexapro 10 mg p.o. every morning. 2. We will continue to follow and readjust the medication. 3. The patient is not an imminent danger to self or others. He does not meet the criteria for Hope, he is open to new medications. I was able to explain to him that the medication would take 2 to 6 weeks to be effective. He was also educated that he needs to take medication every day. We will continue to follow the patient and monitor his symptoms. Kathie Wallace M.D. DR: Salvatore JOB#: [id number] CC:
[2017-01-11] VITALS: BP 178/75
[2017-01-11 04:00] VITALS: BP 148/64
[2017-01-11 07:46] VITALS: BP 153/76
--- NOTE | 2017-01-11 09:17 | General Progress Note ---
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 acute encephalopathy prior brain surgery per report PLAN negative EEG MRI refused neuro evaluation appreciated PT and OT evaluation dc today as per case management impression, plan, and exam edited and reviewed in detail care discussed with RN Subjective Allergies: Coded Allergies: No Known Allergies (Unverified , 08/22/16) Subjective no distress cleared by neuro Objective Last 24 Hour Vital Signs Date Time Temp Pulse Resp B/P Pulse Ox O2 Delivery O2 Flow Rate FiO2 01/11/17 07:46 98.1 62 18 153/76 96 Room Air 01/11/17 04:00 65 01/11/17 04:00 98.5 80 18 148/64 99 Room Air 01/11/17 00:00 74 01/11/17 00:00 98.4 86 20 178/75 Room Air 01/10/17 20:00 98.4 71 18 145/70 97 Room Air 01/10/17 20:00 70 01/10/17 16:00 66 01/10/17 15:54 98.1 65 20 135/66 97 Room Air 01/10/17 12:02 98.0 63 18 131/58 95 Room Air 01/10/17 12:00 72 Intake and Output 01/10/17 01/11/17 19:00 07:00 Intake Total 1060 ml 1200 ml Output Total 550 ml 900 ml Balance 510 ml 300 ml Intake Oral 360 ml 100 ml IV Total 700 ml 1100 ml Output Urine Total 550 ml 900 ml # Voids 1 3 # Bowel Movements 1 Height (Feet): 5 Height (Inches): 6.00 Weight (Pounds): 143 Objective WDWN NAD clear breath sounds bilaterally without rhonchi or wheeze [id number] without MRG NABS nontender no HSM no CCE alert and oriented and near baseline left hand/arm with atrophy and contractures reviewed and edited VINCENT PANTOJA Jan 11, 2017 09:17
[2017-01-11] MEDS: Heparin 5000 units/ml inj SUBQ SCH ×2 (09:26→21:00)
[2017-01-11 11:42] VITALS: BP 139/72
[2017-01-11 15:41] VITALS: BP 145/76
--- NOTE | 2017-01-11 17:15 | Progress Note ---
SUBJECTIVE: The patient still complaining of depressed mood, anhedonia, hopelessness, helplessness, decreased energy. No suicidal or homicidal ideations. Sleep and appetite is adequate. No adverse reaction to the Lexapro. MENTAL STATUS EXAMINATION: The patient is alert and oriented x4, cooperative, pleasant. There is psychomotor retardation. Mood is depressed. Affect is constricted. Congruent with mood. Thought process is concrete. Thought content, no suicidal, homicidal ideations. ASSESSMENT: Major depressive disorder. PLAN: 1. The patient will be continued on Lexapro 10 mg in the morning. 2. Provide the patient with supportive therapy and reality orientation . Kathie Wallace M.D. DR: Slim JOB#: [id number] CC:
[2017-01-11 20:00] VITALS: BP 155/90
[2017-01-12] VITALS: BP 165/78
[2017-01-12 04:00] VITALS: BP 148/70
[2017-01-12 08:01] VITALS: BP 153/70
[2017-01-12] MEDS: Heparin 5000 units/ml inj SUBQ SCH ×3 (08:32→09:00)
[2017-01-12] MEDS ORDERED: ACETAMINOPHEN325 M1 ORAL (11:50)
[2017-01-12] MEDS ORDERED: LEXAPRO10 MG ORAL (11:51)
[2017-01-12] MEDS ORDERED: CATAPRES0.1 MG ORAL (11:51)
[2017-01-12] MEDS ORDERED: HEPARIN SO5000 UNIT2 SUBQ (11:52)
[2017-01-12 11:55] VITALS: BP 170/77
[2017-01-12] MEDS ORDERED: MYLANTA30 M1 ORAL (11:55)
[2017-01-12] MEDS ORDERED: PANTOPRAZOLE SO40 MG ORAL (11:57)
[2017-01-12] MEDS ORDERED: AMBIEN5 MG ORAL (11:57)
[2017-01-12 12:10] VITALS: BP 170/77
--- NOTE | 2017-01-12 13:13 | General Progress Note ---
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 acute encephalopathy prior brain surgery per report PLAN negative EEG MRI refused neuro evaluation appreciated PT and OT evaluation dc today for SNF care impression, plan, and exam edited and reviewed in detail care discussed with RN Subjective Allergies: Coded Allergies: No Known Allergies (Unverified , 08/22/16) Subjective no distress cleared by neuro for dc Objective Last 24 Hour Vital Signs Date Time Temp Pulse Resp B/P Pulse Ox O2 Delivery O2 Flow Rate FiO2 01/12/17 12:10 170/77 01/12/17 11:55 98.1 67 18 170/77 97 Room Air 01/12/17 08:01 97.9 72 18 153/70 97 Room Air 01/12/17 08:00 81 01/12/17 04:00 64 01/12/17 04:00 97.3 63 18 148/70 94 Room Air 01/12/17 00:00 97.7 77 19 165/78 94 Room Air 01/12/17 00:00 83 01/11/17 20:00 76 01/11/17 20:00 97.5 83 20 155/90 94 Room Air 01/11/17 16:00 75 01/11/17 15:41 97.9 71 18 145/76 97 Room Air Intake and Output 01/11/17 01/12/17 19:00 07:00 Intake Total 760 ml 1100 ml Output Total 1050 ml 700 ml Balance -290 ml 400 ml Intake Oral 360 ml IV Total 400 ml 1100 ml Output Urine Total 1050 ml 700 ml # Bowel Movements 1 Height (Feet): 5 Height (Inches): 6.00 Weight (Pounds): 143 Objective WDWN NAD clear breath sounds bilaterally without rhonchi or wheeze [id number] without MRG NABS nontender no HSM no CCE alert and oriented and near baseline left hand/arm with atrophy and contractures reviewed and edited VINCENT PANTOJA Jan 12, 2017 13:13
--- NOTE | 2017-01-13 10:15 | Discharge Summary 2 SIG ---
DATE OF ADMISSION: 01/07/2017 DATE OF DISCHARGE: 01/12/2017 CONSULTANTS: 1. Alber Aquino M.D. 2. Kathie Wallace M.D. BRIEF HOSPITAL COURSE: The patient is a 76-year-old male, who was brought to ED after a fall. The patient admits to prior brain surgery back in 2. He is homeless and he will need rehabilitation. The patient complained of dizziness, but no vision change. He ambulates without cane, but has difficulty in ambulating as he has difficulty with balance. On evaluation at ED, laboratories showed no acute abnormality. EKG was in normal sinus rhythm with no signs of ischemia. Head CT showed no evidence of acute injury or intracranial pathology with a large area of chronic encephalomalacia on the right frontal and temporal lobes, basal ganglia, and an underlying old craniotomy defect. There was a questionable normal pressure hydrocephalus. Chest x-ray done showed no acute cardiopulmonary disease. Patient tried to ambulate at bedside, however, was unsteady. The patient was admitted for neurological evaluation. He was given IV hydration, physical therapy, and occupational therapy. Underwent neurological evaluation with Dr. Aquino, and recommended mobility protocol. EEG done showed mild diffuse slowing, localized on the right frontal central region. The patient voiced suicidal ideation and was placed on 1:1 for safety. He underwent psychiatric evaluation. He was diagnosed to have major depressive disorder, which was recurrent and moderate and was given Lexapro 10 mg every morning. He was assessed to be not an imminent danger to self or others and does not meet the criteria of hope. He was educated to take medications every day and it would take two to six weeks to be effective. He refused MRI. social worker school was able to find placement and the patient was then discharged to SNF. FINAL DIAGNOSES: 1. Possible normal pressure hydrocephalus. 2. Left upper extremity atrophy. 3. Acute encephalopathy. 4. Prior brain surgery. 5. Major depressive disorder. Charlie Navarro M.D. I have been assigned to dictate discharge summary on this account and I was not involved in the patient's management. Brittny Childress N.P. DR: RAMAN JOB#: [id number] CC: CHRISTIANO
--- NOTE | 2017-01-13 17:46 | Progress Note ---
DATE: 01/12/2017 SUBJECTIVE: The patient is doing well. Compliant with medications. Sleep and appetite is adequate. No behavior issues. Tolerating the medications. MENTAL STATUS EXAMINATION: The patient is alert and oriented times self, place, date, and situation. He was cooperative and calm. His speech was within normal limits of latency, frequency, and rhythm. There is no psychomotor retardation or agitation. His mood was depressed. Affect is constricted. Congruent with mood. Thought process is concrete. Thought content, there is no suicidal or homicidal ideations. Cognition is mildly impaired. ASSESSMENT: 1. Major depressive disorder, status post blunt head trauma. 2. Status post old right middle cerebral artery infarct. PLAN: 1. The patient will be continued on Lexapro 10 mg in the morning. 2. We will continue to follow and readjust the medications. 3. The patient is not holdable. Kathie Wallace M.D. DR: RICK JOB#: [id number] CC:
== END 2017-01-12 13:00 | DRG 56 ==
LOC: EDBD 07:44 → EMR 08:25 → EDBEDREQ 10:12 → 2E 10:18 → EDBEDREQ 10:44 → 2E 18:25
DX: G91.2 (Idiopathic) normal pressure hydrocephalus (principal); G93.40 Encephalopathy, unspecified; G81.91 Hemiplegia, unspecified affecting right dominant side; G93.89 Other specified disorders of brain; F33.9 Major depressive disorder, recurrent, unspecified; R94.01 Abnormal electroencephalogram [EEG]; M62.522 Muscle wasting and atrophy, not elsewhere classified, left upper arm; Z59.0 Homelessness; Z98.890 Other specified postprocedural states; Z91.81 History of falling
CPT/HCPCS: 36415; 70450; 71010; 80053; 80061; 81003; 82550; 82553; 82607; 84153; 84443; 84484; 85025; 87081; 93005; 95819

== ENCOUNTER 2018-06-16 00:24 | Emergency (ER) | payer SELFPAY ==
[~2018-06-16] VITALS: Ht 165.1 cm; Wt 68.0 kg
[~2018-06-16 00:24] MED LIST changes: +ACETAMINOPHEN325 M1 ORAL; +AMBIEN5 MG ORAL; +CATAPRES0.1 MG ORAL; +HEPARIN SO5000 UNIT2 SUBQ; +LEXAPRO10 MG ORAL; +MYLANTA30 M1 ORAL; +PANTOPRAZOLE SO40 MG ORAL
[2018-06-16] MEDS ORDERED: NKM (00:39)
[2018-06-16 00:53] VITALS: BP 185/80
[2018-06-16] MEDS ORDERED: BACTRIM DS TAB1 EAC1 ORAL (01:02)
[2018-06-16] MEDS ORDERED: DIPHENHYDRAMINE25 M1 ORAL (01:02)
[2018-06-16] MEDS ORDERED: PREDNISONE20 MG ORAL (01:02)
[2018-06-16] MEDS ORDERED: CEPHALEXIN500 MG ORAL (01:02)
[2018-06-16 01:25] VITALS: BP 150/78
--- NOTE | 2018-06-16 03:54 | Emergency Room Report ---
History of Present Illness General Chief Complaint: Skin Rash/Abscess Present Illness HPI 78-year-old male presents ED for evaluation of rash. Notes multiple itchy bumps to his arms, legs, neck. States it is very itchy. States there is a bump on his neck that got progressively bigger. Pain is dull, 5 out of 10, nonradiating. Denies fevers or chills. Denies any known food or drug allergies. No other aggravating relieving factors. Denies any other associated symptoms Allergies: Coded Allergies: No Known Allergies (Unverified , 08/22/16) Patient History Past Medical History: CVA/TIA Past Surgical History: none Pertinent Family History: none Social History: Denies: smoking, alcohol use, drug use Immunizations: UTD Reviewed Nursing Documentation: PMH: Agreed; PSxH: Agreed Nursing Documentation-PMH Hx Cardiac Problems: No Hx Cancer: No Hx Gastrointestinal Problems: No Hx Neurological Problems: Yes Hx Cerebrovascular Accident: Yes - 1961 with left sided weakness Hx Neurologic Surgery: Yes - Craniotomy on 1961 Review of Systems All Other Systems: negative except mentioned in HPI Physical Exam Vital Signs Date Time Temp Pulse Resp B/P (MAP) Pulse Ox O2 Delivery O2 Flow Rate FiO2 06/16/18 00:35 97.9 91 16 185/80 98 Room Air Sp02 EP Interpretation: reviewed, normal General Appearance: no apparent distress, alert, GCS 15, non-toxic Head: normocephalic Eyes: bilateral eye normal inspection, bilateral eye PERRL ENT: normal ENT inspection Neck: full range of motion, supple/symm/no masses Respiratory: normal inspection Cardiovascular #1: normal inspection Gastrointestinal: normal inspection Rectal: deferred Genitourinary: no CVA tenderness Musculoskeletal: normal inspection Neurologic: other - atrophy LUE (old CVA) Psychiatric: normal inspection Skin: other - multiple erythematous bumps to arms, chest. 1cm induration/ erythema to R side of neck. no fluctuance or discharge Lymphatic: normal inspection Medical Decision Making Diagnostic Impression: Primary Impression: Insect bite Qualified Codes: W57.XXXA - Bitten or stung by nonvenomous insect and other nonvenomous arthropods, initial encounter ER Course Hospital Course 78-year-old male presents to ED with rash to neck, arms and chest Differential diagnoses include: Cellulitis, dermatitis, insect bite, abscess Clinical course Patient placed on stretcher. After initial history, physical exam reveals an elderly male in no acute distress. On exam there are multiple erythematous bumps to the arms, chest. nonerythematous base. No discharge. there is a 1cm bump to the R lateral neck with induration/erythema. no fluctuance or discharge likely insect bites due to diffuse nature. we will discharge on antibiotics, benedryl, prednisone. safe for discharge with close outpatient followup Diagnosis - insect bite stable and discharged to home with prescription for prednisone, benedryl, keflex ,bactrim. Instructed to followup with PMD. Instructed return to ED if symptoms recur or worsen Last Vital Signs Date Time Temp Pulse Resp B/P (MAP) Pulse Ox O2 Delivery O2 Flow Rate FiO2 06/16/18 01:25 97.9 86 16 150/78 98 Room Air Status: improved Disposition: HOME, SELF-CARE Condition: Stable Scripts Diphenhydramine Hcl* (DIPHENHYDRAMINE HCL*) 25 Mg Capsule 25 MG ORAL Q6H PRN for Itching, #30 CAP 0 Refills Prov: Tushar Burdick MD 06/16/18 Prednisone* (PREDNISONE*) 20 Mg Tablet 40 MG ORAL DAILY, #10 TAB Prov: Tushar Burdick MD 06/16/18 Trimethoprim/Sulfamethoxazole 160/800* (BACTRIM DS TABLET*) 1 Each Tablet 1 TAB ORAL Q12H, #14 TAB 0 Refills Prov: Tushar Burdick MD 06/16/18 Cephalexin* (KEFLEX*) 500 Mg Capsule 500 MG ORAL EVERY 6 HOURS for 7 Days, CAP Prov: Tushar Burdick MD 06/16/18 Referrals: NOT CHOSEN IPA/,REFERRING (PCP) Patient Instructions: Insect Bite, [id number] Tushar Burdick MD Jun 16, 2018 03:54
== END 2018-06-16 01:25 | disposition home or self-care (01) ==
LOC: EMR 01:11
DX: S40.862A Insect bite (nonvenomous) of left upper arm, initial encounter (principal); S40.861A Insect bite (nonvenomous) of right upper arm, initial encounter; S20.369A Insect bite (nonvenomous) of unspecified front wall of thorax, initial encounter; S10.96XA Insect bite of unspecified part of neck, initial encounter; W57.XXXA Bitten or stung by nonvenomous insect and other nonvenomous arthropods, initial encounter; Y92.9 Unspecified place or not applicable; G81.94 Hemiplegia, unspecified affecting left nondominant side
CPT/HCPCS: 99283